=== PATIENT | female | born 1995 | race African-American/Black ===

== ENCOUNTER 2019-07-05 16:18 | Emergency (ER) | payer OTHER, SELFPAY ==
--- NOTE | ~2019-07-05 | US_ITS ---
EXAMINATION: US OB <=14 wk fetus w TV DATE: 07/05/2019 17:40 INDICATION: Cramping during first trimester . TECHNIQUE: Real-time pelvic ultrasound utilizing both a transvaginal and transabdominal probe was pe rformed. The interpreting radiologist was not present for the study. COMPARISON: None. FINDINGS: The uterus measures 8.7 x 4.4 x 5.6 cm. 11 x 4 x 7 mm endometrial fluid collection without evident y olk sac or pole. The right ovary measures 2.3 x 1.9 x 1.0 cm. With a few subcentimeter anechoic follicles. The left ov jero measures 4.1 x 3.2 x 2.7 cm. Vascular flow identified at both ovaries on color Doppler. 2.3 x 1.7 x 1.8 cm mildly complex anechoic cystic lesion in the left ovary with incomplete internal septation and small amount of peripheral hypoechoic material without vascular flow on color Doppler which could represent either hemorrhagic or corpus luteum cyst. There is small amount of anechoic free fluid in the cul-de-sac and along the left ovary. IMPRESSION: 1. Small endometrial fluid collection without evident yolk sac or pole. Differential would incl ude early, failed or ectopic . If representing a gestational sac the estimated gestational a ge based on mean sac diameter would be 5 weeks and 2 days. 2. Small amount of nonspecific anechoic free fluid in the pelvis. 3. Mildly complex cystic structure in the left ovary most likely either corpus luteum cyst or hemorrh agic cyst although differential would include neoplasm. Recommend follow-up ultrasound in 6-12 weeks if prior ultrasound is not otherwise obtained for obstetrical reasons. Reviewed, dictated and finalized at location A. IMPRESSION: 1. Small endometrial fluid collection without evident yolk sac or pole. D ifferential would include early, failed or ectopic . If representing a gestational sac the estimated gestational age based on mean sac diameter would be 5 weeks and 2 days. 2. Small amount of nonspecific anechoic free fluid in the pelvis. 3. Mildly complex cystic structure in the left ovary most likely either corpus luteum cyst or hemorrhagic cyst although differential would include neoplasm. R ecommend follow-up ultrasound in 6-12 weeks if prior ultrasound is not otherwis e obtained for obstetrical reasons.
[2019-07-05 16:21] VITALS: BP 119/72; PULSE 96; RESP 16; TEMP 37.2; O2SAT 98
--- NOTE | 2019-07-05 17:22 | ED_ITS ---
HPI - Abdominal Pain General Chief Complaint: Abdominal Pain <Redd Mg PA-C - Last Filed: 07/05/19 19:01> Stated Complaint: Abd pain <BENY Bocanegra Last Filed: 07/05/19 19:01> Time Seen by Provider: 07/05/19 16:27 <Redd Mg PA-C - Last Filed: 07/05/19 19:01> Source: patient and family <Redd Mg PA-C - Last Filed: 07/05/19 19:01> Mode of arrival: ambulatory <Redd Mg PA-C - Last Filed: 07/05/19 19:01> Limitations: no limitations <Redd Mg PA-C - Last Filed: 07/05/19 19:01> History of Present Illness HPI narrative: patient is a 23 yo female with nausea and cramping that occurred today. pt denies any pain discharge or bleeding. pt is and has not seen her ob for this. Paitent notes on e self limited episode of cramping lasted seconds and resolved. <Redd Mg PA-C - Last Filed: 07/05/19 19:01> Related Data Home Medications: Home Medications Medication Instructions Recorded Confirmed No Home Medications 07/05/19 07/05/19 <BENY Bocanegra Last Filed: 07/05/19 19:01> Allergies/Adverse Reactions: Allergies Allergy/AdvReac Type Severity Reaction Status Date / Time No Known Allergies Allergy Verified 07/05/19 16:23 <Redd Mg PA-C - Last Filed: 07/05/19 19:01> Review of Systems Review of Systems: All systems reviewed & are unremarkable except as noted in HPI and below <Redd Mg PA-C - Last Filed: 07/05/19 19:01> [facility] Social History Social History: Social History (Updated 07/05/19 @ 17:24 by Redd Mg PA-C) Smoking status: Never smoker Gender identity (if verbalized by the patient): Female <Redd Mg PA-C - Last Filed: 07/05/19 19:01> Exam Const: General: no acute distress and alert <Redd Mg PA-C - Last Filed: 07/05/19 19:01> Orientation/consciousness: patient oriented x3 <Redd Mg BENY Mena Last Filed: 07/05/19 19:01> HENMT: Head: normal to inspection <Redd Mg BENY Mena Last Filed: 07/05/19 19:01> Eyes: Conjunctivae: conjunctivae normal <Redd Mg BENY Mena Last Filed: 07/05/19 19:01> Pupils: Equal, round and reactive pupils present <Redd Jacky Mg BENY Mena Last Filed: 07/05/19 19:01> Resp: Effort & Inspection: normal respiratory effort <Redd Mg [employer] Last Filed: 07/05/19 19:01> Auscultation: clear to auscultation bilaterally <Redd Jacky Saurav BENY [employer] Last Filed: 07/05/19 19:01> Cardio: Rate: regular rate <Redd Mg BENY [employer] Last Filed: 07/05/19 19:01> Rhythm: regular rhythm <Redd Mg TON [employer] Last Filed: 07/05/19 19:01> GI: GI Palp: Yes Soft to palpation <Redd Mg TON [employer] Last Filed: 07/05/19 19:01> Other: nontender <Redd Mg TON [employer] Last Filed: 07/05/19 19:01> : General: Yes no CVA tenderness <Redd Mg TON Rajesh Last Filed: 07/05/19 19:01> Back/Spine/Pelvis: Back: no CVA tenderness <Redd Mg TON Rajesh Last Filed: 07/05/19 19:01> Skin: General skin exam: normal color <Redd Mg TON [employer] Last Filed: 07/05/19 19:01> Rashes: no rashes <STEPHANIE BocanegraRajesh 0xdata Last Filed: 07/05/19 19:01> Neuro: General: patient oriented x3, moves all extremities, no focal motor deficits and CN's II-XI intact bilaterally <Redd Rico SauravSTEPHANIETabatha 0xdata Last Filed: 07/05/19 19:01> Extrem: General: normal to
--- NOTE | 2019-07-05 17:22 | ED.ABDPAIN ---
HPI - Abdominal Pain General Chief Complaint: Abdominal Pain <Redd Mg PA-C - Last Filed: 07/05/19 19:01> Stated Complaint: Abd pain <BENY Bocanegra Last Filed: 07/05/19 19:01> Time Seen by Provider: 07/05/19 16:27 <Redd Mg PA-C - Last Filed: 07/05/19 19:01> Source: patient and family <Redd Mg PA-C - Last Filed: 07/05/19 19:01> Mode of arrival: ambulatory <Redd Mg PA-C - Last Filed: 07/05/19 19:01> Limitations: no limitations <Redd gM PA-C - Last Filed: 07/05/19 19:01> History of Present Illness HPI narrative: patient is a 23 yo female with nausea and cramping that occurred today. pt denies any pain discharge or bleeding. pt is and has not seen her ob for this. Paitent notes on e self limited episode of cramping lasted seconds and resolved. <Redd Mg PA-C - Last Filed: 07/05/19 19:01> Related Data Home Medications: Home Medications Medication Instructions Recorded Confirmed No Home Medications 07/05/19 07/05/19 <BENY Bocanegra Last Filed: 07/05/19 19:01> Allergies/Adverse Reactions: Allergies Allergy/AdvReac Type Severity Reaction Status Date / Time No Known Allergies Allergy Verified 07/05/19 16:23 <Redd Mg PA-C - Last Filed: 07/05/19 19:01> Review of Systems Review of Systems: All systems reviewed & are unremarkable except as noted in HPI and below <Redd Mg PA-C - Last Filed: 07/05/19 19:01> [facility] Social History Social History: Social History (Updated 07/05/19 @ 17:24 by Redd Mg PA-C) Smoking status: Never smoker Gender identity (if verbalized by the patient): Female <Redd Mg PA-C - Last Filed: 07/05/19 19:01> Exam Const: General: no acute distress and alert <Redd Mg PA-C - Last Filed: 07/05/19 19:01> Orientation/consciousness: patient oriented x3 <STEPHANIE BocanegraTabatha Mena Last Filed: 07/05/19 19:01> HENMT: Head: normal to inspection <STEPHANIE BocanegraTabatha Mena Last Filed: 07/05/19 19:01> Eyes: Conjunctivae: conjunctivae normal <STEPHANIE BocanegraRajesh Rajesh Last Filed: 07/05/19 19:01> Pupils: Equal, round and reactive pupils present <STEPHANIE BocanegraRajesh Rajesh Last Filed: 07/05/19 19:01> Resp: Effort & Inspection: normal respiratory effort <STEPHANIE BocanegraRajesh [employer] Last Filed: 07/05/19 19:01> Auscultation: clear to auscultation bilaterally <STEPHANIE BocanegraRajesh Rajesh Last Filed: 07/05/19 19:01> Cardio: Rate: regular rate <STEPHANIE BocanegraRajesh [employer] Last Filed: 07/05/19 19:01> Rhythm: regular rhythm <STEPHANIE BocanegraRajesh [employer] Last Filed: 07/05/19 19:01> GI: GI Palp: Yes Soft to palpation <STEPHANIE BocanegraRajesh [employer] Last Filed: 07/05/19 19:01> Other: nontender <STEPHANIE BocanegraRajesh [employer] Last Filed: 07/05/19 19:01> : General: Yes no CVA tenderness <STEPHANIE BocanegraRajesh Rajesh Last Filed: 07/05/19 19:01> Back/Spine/Pelvis: Back: no CVA tenderness <STEPHANIE BocanegraRajesh Rajesh Last Filed: 07/05/19 19:01> Skin: General skin exam: normal color <STEPHANIE BocanegraRajesh [employer] Last Filed: 07/05/19 19:01> Rashes: no rashes <STEPHANIE BocanegraRajesh [employer] Last Filed: 07/05/19 19:01> Neuro: General: patient oriented x3, moves all extremities, no focal motor deficits and CN's II-XI intact bilaterally <TON Bocanegra [employer] Last Filed: 07/05/19 19:01> Extrem: General: normal to inspection <TON Bocanegra [employer] Last Filed: 07/05/19 19:01> Psych: Appearance: grossly normal <Redd Mg PA-C - Last Filed: 07/05/19 19:01> Mental Status: mental status grossly normal <Redd Mg PA-C - Last Filed: 07/05/19 19:01> Affect: normal affect <Redd Mg PA-C - Last Filed: 07/05/19 19:01> Thought content: Yes Normal thought content present <Redd Mg PA-C - Last Filed: 07/05/19 19:01> Course Consultations Consultation #1: spoke with dish network installer Mireille who will follow patient in cl
[2019-07-05 17:23] LABS: Basophils Percent Auto 0.5 % (0.2-1.2); Eosinophils Absolute Auto 0.1 K/mm3 (0-0.3); Eosinophils Percent Auto 0.9 % (0-4.4); Hematocrit 39.1 % (37.0-47.0); Hemoglobin 12.8 g/dL (12.0-15.0); Immature Granulocyte Absolute 0.02 K/mm3 (0.00-0.031); Immature Granulocyte Percent A 0.3 % (0-0.5); Lymphocytes Percent Auto 24.4 % (18.3-44.2); Mean Corpuscular HGB Conc 32.7 g/dl (32-36); Mean Corpuscular Volume 94.7 fl (80-100); Mean Platelet Volume 11.2 fl (7.4-10.4); Monocytes Absolute Auto 0.8 K/mm3 (0.1-0.6); Monocytes Percent Auto 13.1 % (2.6-8.5); Neutrophils Absolute Auto 3.5 K/mm3 (1.3-6.7); Neutrophils Percent Auto 60.8 % (45.5-73.1); Platelet Count Result 237 k/mm3 (150-375); Red Blood Count 4.13 M/mm3 (4.2-5.4); Red Cell Distribution Width 12.4 % (11.5-14.5); White Blood Count 5.7 K/mm3 (4.5-10.0)
[2019-07-05 17:27] LABS: Add Urine Microscopic? YES; Appearance Urine Clear (Clear); Bilirubin Urine Negative (Negative); Blood Urine 2+ (Negative); Color Urine Colorless (Yellow); Glucose Urine UA Negative (Negative); Ketones Urine Negative (Negative); Leukocyte Esterase Ur Negative LEU/UL (Negative); Nitrate Urine Negative (Negative); Protein Urine Negative (Negative); Specific Grav Ur 1.005 (1.001-1.035); Squamous Epithelial Cell Urine Few /hpf (Few); Urobilinogen Urine Negative mg/dL (<2.0); WBC Urine 0-3 /hpf
[2019-07-05 17:58] LABS: Alanine Aminotransferase 48 U/L (4-35); Albumin Level 4.5 g/dL (3.5-5.1); Alkaline Phosphatase 81 U/L (38-126); Aspartate Amino Transferase 33 U/L (14-36); Bilirubin,Total 0.1 mg/dL (0.2-1.3); Blood Urea Nitrogen 10 mg/dL (7-17); Calcium 8.9 mg/dL (8.4-10.2); Carbon Dioxide 25 mmol/L (22-30); Chloride 103 mmol/L (98-107); Estimated CRCL calculation 138 ml/min; Estimated Glomerular Filt Rate > 60; Glucose 88 mg/dL (65-105); Lipase 91 U/L (23-300); Sodium 135 mmol/L (137-145)
[2019-07-05 18:10] LABS: Potassium 3.8 mmol/L (3.4-5.0)
== END 2019-07-05 19:11 | disposition home or self-care (01) ==
PROVIDERS: Emergency Medicine Emergency Medical Services; Emergency Provider Emergency Medicine
DX: O26.891 Other specified pregnancy related conditions, first trimester (principal); R10.9 Unspecified abdominal pain; Z3A.01 Less than 8 weeks gestation of pregnancy; R93.89 Abnormal findings on diagnostic imaging of other specified body structures
CPT/HCPCS: 36415; 76801; 76817; 80053; 81001; 81025; 83690; 84702; 85025; 99284

== ENCOUNTER 2020-01-13 14:05 | Observation (INO) | payer OTHER, MEDICAID, SELFPAY ==
[2020-01-13] VITALS (8 sets, daily range): BP systolic 95–110; BP diastolic 58–67; PULSE 88–112; TEMP 36.8; BMI 22.8
--- NOTE | 2020-01-13 14:38 | OBADM ---
This patient, Aleja Magallon, admitted to the OB room 115 at 1405 for observation for c/o abdominal cramping. Patient/family oriented to hospital policies and general routines including ID bracelet, bed and alarms, visiting hours, pain management, procedures, bathroom and other care routines, personal items, smoking policy, room service/diet, and visiting hours. Patient/Family are encouraged to report perceived risks to care and to ask questions if they do not understand what they are told or what they should do.
[2020-01-13 14:45] LABS: Add Urine Microscopic? YES; Appearance Urine Clear (Clear); Bacteria Urine Trace /hpf; Bilirubin Urine Negative (Negative); Blood Urine Negative (Negative); Color Urine Yellow (Yellow); Glucose Urine UA Negative (Negative); Ketones Urine Trace mg/dL (Negative); Leukocyte Esterase Ur Negative LEU/UL (Negative); Mucus Urine Rare /lpf; Nitrate Urine Negative (Negative); Protein Urine Negative (Negative); RBC Urine 0-2 /hpf (0-2); Specific Grav Ur 1.012 (1.001-1.035); Squamous Epithelial Cell Urine Many /hpf (Few); Urobilinogen Urine Negative mg/dL (<2.0); WBC Urine 0-3 /hpf
[2020-01-13] MEDS: ACETAMINOPHEN 500 MG TABLET PO (15:14)
[2020-01-13] MEDS: TERBUTALINE SULFATE 1 MG/ML VIAL 0.25 MG SUB-Q (16:15)
--- NOTE | 2020-01-18 07:33 | P.PNOB_ITS ---
OB - Triage/Final Diagnosis Visit Information Date of evaluation: 01/13/20 Reason for evaluation: threatened labor Evaluation Laboratory results: Laboratory Tests 01/13/20 14:31 Urine Color Yellow Urine Appearance Clear Urine pH 7.0 Ur Specific [place] 1.012 Urine Protein Negative Urine Glucose (UA) Negative Urine Ketones Trace Ur Blood (Man) Negative Urine Nitrate Negative Urine Bilirubin Negative Urine Urobilinogen Negative Leukocyte Esterase Rfl Negative Urine RBC 0-2 Urine WBC 0-3 Ur Squamous Epith Cells Many H Urine Bacteria Trace Urine Mucus Rare
== END 2020-01-13 18:49 | disposition home or self-care (01) ==
PROVIDERS: Advanced Practice Midwife; Admitting Provider Obstetrics & Gynecology; PCP Physician Assistant; Visit Provider Obstetrics & Gynecology
DX: O47.9 False labor, unspecified (principal); Z3A.00 Weeks of gestation of pregnancy not specified
CPT/HCPCS: 81001; 96372; A9270; G0378; G0379; J3105

== ENCOUNTER 2020-01-30 10:41 | Observation (INO) | payer OTHER, MEDICAID, SELFPAY ==
--- NOTE | 2020-01-30 10:41 | OBADM ---
This patient, Aleja Magallon, admitted to the OB room OB Post 116 for observation. Patient/family oriented to hospital policies and general routines including ID bracelet, bed and alarms, visiting hours, pain management, procedures, bathroom and other care routines, personal items, smoking policy, room service/diet, and visiting hours. Patient/Family are encouraged to report perceived risks to care and to ask questions if they do not understand what they are told or what they should do.
[2020-01-30 11:00] VITALS: BP 102/53; PULSE 115
[2020-01-30 11:02] VITALS: TEMP 36.2
[2020-01-30 11:06] VITALS: BMI 24.2
[2020-01-30] MEDS: ACETAMINOPHEN 500 MG TABLET 1000 MG PO (11:16)
--- NOTE | 2020-02-24 08:09 | PM.OBTRLD ---
OB - Triage/Final Diagnosis Final Diagnosis (1) False labor: Code(s): O47.9 - False labor, unspecified Status: Acute
== END 2020-01-30 11:40 | disposition home or self-care (01) ==
PROVIDERS: Admitting Provider Obstetrics & Gynecology; PCP Physician Assistant; Visit Provider Obstetrics & Gynecology
DX: O47.03 False labor before 37 completed weeks of gestation, third trimester (principal); Z3A.35 35 weeks gestation of pregnancy
CPT/HCPCS: A9270; G0378; G0379

== ENCOUNTER 2020-02-29 19:54 | Inpatient (IN) | payer OTHER, MEDICAID, SELFPAY ==
[2020-02-29 20:30] VITALS: BMI 24.7
[2020-02-29 20:33] LABS: Basophils Percent Auto 0.3 % (0.2-1.2); Eosinophils Percent Auto 0.4 % (0-4.4); Hematocrit 32.3 % (37.0-47.0); Hemoglobin 10.9 g/dL (12.0-15.0); Immature Granulocyte Absolute 0.09 K/mm3 (0.00-0.031); Immature Granulocyte Percent A 0.9 % (0-0.5); Lymphocytes Absolute Auto 1.69 K/mm3 (0.9-3.2); Lymphocytes Percent Auto 16.8 % (18.3-44.2); Mean Corpuscular HGB Conc 33.7 g/dl (32-36); Mean Corpuscular Hemoglobin 32.5 pg (26-34); Mean Corpuscular Volume 96.4 fl (80-100); Mean Platelet Volume 11.6 fl (7.4-10.4); Monocytes Absolute Auto 1.2 K/mm3 (0.1-0.6); Monocytes Percent Auto 12.4 % (2.6-8.5); Neutrophils Absolute Auto 6.9 K/mm3 (1.3-6.7); Neutrophils Percent Auto 69.2 % (45.5-73.1); Platelet Count Result 178 k/mm3 (150-375); Red Blood Count 3.35 M/mm3 (4.2-5.4); Red Cell Distribution Width 13.9 % (11.5-14.5)
[2020-02-29 20:49] VITALS: TEMP 36.8
[2020-02-29] MEDS: DINOPROSTONE 10 MG VAG INSERT VAGINAL (20:54)
--- NOTE | 2020-02-29 21:35 | LDADM ---
This patient, Aleja Magallon, was admitted to Labor/Delivery/Recovery 107 on 02/29/20 at 19:54. Plans for labor, pain management and were discussed with patient. Patient/family oriented to hospital policies and general routines including ID bracelet, bed and alarms, visiting hours, pain management, procedures, bathroom and other care routines, personal items, smoking policy, room service/diet and guest tray routines, infant security routines, and visiting hours. Patient/Family are encouraged to report perceived risks to care and to ask questions if they do not understand what they are told or what they should do. See OBIX for further documentation.
[2020-02-29 22:51] VITALS: BP 102/66; PULSE 104
[2020-02-29] MEDS: ZOLPIDEM TARTRATE (*CRX) 5 MG TABLET PO (22:55)
[2020-03-01] VITALS (79 sets, daily range): BP systolic 97–230; BP diastolic 46–174; PULSE 37–130; RESP 14; TEMP 36.5–37.2; O2SAT 77–100
--- NOTE | 2020-03-01 06:05 | WPDANESEPP ---
Anes - Eval Pre Procedure Procedure: labor epidural Date/Time: 03/01/20 06:05 Surgeon: kendrick Pre Op Diagnosis: Induction Patient Data Age: 24 Gender: F Height: 1.7 m Weight: 71.8 kg Last Vital Signs Temp 36.5 C 03/01/20 03:57 Pulse 116 H 03/01/20 03:56 BP 125/76 03/01/20 03:56 Allergies Allergy/AdvReac Type Severity Reaction Status Date / Time No Known Allergies Allergy Verified 02/09/20 15:39 Home Medications Medication Instructions Recorded Confirmed Type PNV cmb#95-ferrous fumarate-FA 1 tablet PO DAILY 01/13/20 02/29/20 History [] acetaminophen [Tylenol Extra 1,000 mg PO Q6H PRN #0 tablet 01/13/20 01/13/20 Rx Strength] valacyclovir [Valtrex] 500 mg PO DAILY 02/09/20 02/09/20 History Laboratory Tests 02/29/20 02/29/20 02/29/20 20:26 20:26 20:26 WBC 10.0 K/mm3 K/mm3 (4.5-10.0) RBC 3.35 M/mm3 L M/mm3 (4.2-5.4) Hgb 10.9 g/dL L g/dL (12.0-15.0) Hct 32.3 % L % (37.0-47.0) MCV 96.4 fl fl (80-100) MCH 32.5 pg pg (26-34) MCHC 33.7 g/dl g/dl (32-36) RDW 13.9 % % (11.5-14.5) Plt Count 178 k/mm3 k/mm3 (150-375) MPV 11.6 fl H fl (7.4-10.4) Immature Gran % (Auto) 0.9 % H % (0-0.5) Neut % (Auto) 69.2 % % (45.5-73.1) Lymph % (Auto) 16.8 % L % (18.3-44.2) [place] % (Auto) 12.4 % H % (2.6-8.5) Eos % (Auto) 0.4 % % (0-4.4) Baso % (Auto) 0.3 % % (0.2-1.2) Lymph # (Auto) 1.69 K/mm3 K/mm3 (0.9-3.2) [place] # (Auto) 1.2 K/mm3 H K/mm3 (0.1-0.6) Eos # (Auto) 0.0 K/mm3 K/mm3 (0-0.3) Baso # (Auto) 0.0 K/mm3 K/mm3 (0.0-0.1) Abs Immat Gran (auto) 0.09 K/mm3 H K/mm3 (0.00-0.031) Absolute Neuts (auto) 6.9 K/mm3 H K/mm3 (1.3-6.7) Absolute Nucleated RBC 0.0 K/mm3 K/mm3 (0.0-0.012) Nucleated RBC % 0.0 % % (0.0-0.2) RPR Pending Blood Type O Positive Antibody Screen Negative Patient hx anesthesia problems: none Family hx anesthesia problems: none [facility] Family History Family History (Updated 02/09/20 @ 15:41 by Iron Crane RN) Sibling Asthma Social History Social History (System 07/06/19 @ 10:50 by Crystal Pugh) Smoking status: Never smoker Alcohol intake: current Substance use: never Gender identity (if verbalized by the patient): Female Spiritual care concerns: No Exam Day of Procedure 03/01/20 06:05
[2020-03-01] MEDS: LACTATED RINGERS 1,000 ML 125 ML IV CONT ×2 (08:16→14:50)
[2020-03-01] MEDS: fentaNYL CITRATE INJ (*CRX) 100 MCG/2 ML VIAL 50 MCG IV PUSH ×2 (08:17→10:50)
[2020-03-01] MEDS: OXYTOCIN 30 UNITS/NS 500 ML 30 UNITS/500 ML BAG 6 UNITS IV CONT (08:20)
--- NOTE | 2020-03-01 12:47 | WPDOBADMIT ---
Obstetrics - Admit Note Admission Note: record reviewed. No pertinent additions to the history and/or any subsequent changes in the physical findings that are not consistent with the expected course of the were found. EIL at 39 weeks, AROM small amount of clear odorless fluid, sve 1//-2 Additions to the history and/or subsequent changes in the physical findings follow. None.
[2020-03-01 13:33] LABS: Rapid Plasma Reagin Non-Reactive (NonReactive)
--- NOTE | 2020-03-01 16:44 | PM.OBPRVD ---
OB - Delivery Note Procedure Delivery date: 03/01/20 Procedure: vaginal delivery Intrapartal events: None Induction method: AROM and per pitocin protocol Delivery monitor: external FHT, external uterine and internal uterine Route of delivery: Laceration Description: None Specimen: No Quantitative Blood Loss (ml): 172 Anesthesia type: Epidural [place] Baby Date of : 03/01/20 Time of : 16:33 Weeks of gestation at delivery: 39 gender: Male Weight (pounds): 7 Weight (ounces): 7 presentation: vertex position: Left Occiput Anterior Placenta delivery description: Spontaneous cord vessel description: 3 Vessels and Clamped/Cut score one minute: 8 score five minutes: 9 Narrative: Mother and baby in stable condition.
[2020-03-01] MEDS: OXYTOCIN 30 UNITS/NS 500 ML 30 UNITS/500 ML BAG 125 UNITS IV CONT (17:15)
[2020-03-01] MEDS: WITCH HAZEL 40 PADS 1 PAD TOPICAL (18:35)
[2020-03-01] MEDS: BENZOCAINE 20% AER SPR (*SP) 56 GM CAN 1 SPRAY TOPICAL (18:35)
[2020-03-02 05:00] LABS: Hematocrit 28.9 % (37.0-47.0); Hemoglobin 9.9 g/dL (12.0-15.0)
--- NOTE | 2020-03-02 07:26 | WPDANLDPN2 ---
Anes-Prog Note L&D Date/Time: 03/02/20 07:26 Comfortable throughout: labor and delivery Neuraxial method: epidural Neuro status: Neuro function grossly intact. Cardiovascular status: normal Respiratory status: normal Airway patency: baseline Mental status: baseline Post-Op hydration status: normal Vital Signs: Last Vital Signs Temp 37.2 C 03/01/20 19:05 Pulse 101 H 03/01/20 19:05 Resp 14 03/01/20 19:05 BP 115/65 03/01/20 19:05 Pulse Ox 99 03/01/20 19:05 Pain score (VAS): 0 I/O: Intake & Output 03/01/20 03/01/20 03/02/20 15:59 23:59 07:59 Intake Total 1000 500 Output Total 206 Balance 1000 294 Post-procedural complaints: none Patient feedback: Patient satisfied with anesthetic care.
[2020-03-02 07:35] VITALS: BP 105/65; PULSE 92; RESP 18; TEMP 36.6; O2SAT 99
--- NOTE | 2020-03-02 07:42 | PM.OBPNVD ---
OB - PN: Subj Subjective Date/time seen: 03/02/20 07:42 Patient comments: no complaints baby status: doing well OB - PN: Obj Data Labs CBC & Chem 7: 03/02/20 04:50 Labs: Laboratory Results - last 24 hr 02/29/20 03/02/20 20:26 04:50 Hgb 9.9 L Hct 28.9 L RPR Non-reactive OB - PN A/P Plan day: 1 Plan: routine care Time Spent With Patient Time: Total time spent is greater than 50% in coordination of care (as documented) at patient's floor/unit and/or counseling patient: Time with patient: less than 15 minutes Review of Systems Review of Systems: All systems reviewed & are unremarkable except as noted in HPI and below Exam Narrative: Exam Narrative: Fundus firm and vaginal flow controlled. No lower ext redness, warmth, or edema. Negative homans. Const: General: comfortable Chest: Breast/axilla inspection: normal inspection of the breasts Resp: Effort & Inspection: normal respiratory effort Cardio: Rate: regular rate GI: GI Palp: Yes Soft to palpation Psych: Appearance: grossly normal Affect: normal affect Attitude: cooperative Thought content: Yes Normal thought content present Judgement: Good judgement present (Psych)
[2020-03-02] MEDS: DOCUSATE SODIUM 100 MG CAPSULE PO ×2 (11:48→17:36)
[2020-03-02] MEDS: POLYSACCHARIDE IRON COMPLEX 150 MG CAPSULE PO ×2 (11:48→17:35)
[2020-03-02] MEDS: MULTIVIT/MIN/PREN/FOL AC/IRON TABLET 1 TAB PO (11:48)
[2020-03-02] MEDS: IBUPROFEN 600 MG TABLET PO ×2 (11:49→17:36)
[2020-03-02 20:55] VITALS: BP 95/77; PULSE 86; RESP 15; TEMP 36.8; O2SAT 98
--- NOTE | 2020-03-03 06:15 | PC.NURSE ---
Patient viewed the discharge video Mother & Baby Care, The First Two Weeks . Patient was given the opportunity and encouraged to ask questions. Patient verbalized understanding of information shared and has been given the mother/baby guide for home reference.
--- NOTE | 2020-03-03 07:33 | PM.OBPNVD ---
OB - PN: Subj Subjective Date/time seen: 03/03/20 07:33 Patient comments: no complaints baby status: doing well Vancleve feeding status: exclusively bottle feeding OB - PN: Obj Data Labs CBC & Chem 7: 03/02/20 04:50 OB - PN A/P Plan day: 2 Plan: routine care and discharge home Time Spent With Patient Time: Total time spent is greater than 50% in coordination of care (as documented) at patient's floor/unit and/or counseling patient: Review of Systems Review of Systems: All systems reviewed & are unremarkable except as noted in HPI and below Exam Const: General: cooperative Psych: Thought content: Yes Normal thought content present Insight: Good insight present (Psych) Judgement: Good judgement present (Psych)
--- NOTE | 2020-03-03 07:34 | P.DS_ITS ---
DS: Admitting Diagnosis Admitting Diagnosis Admitting Diagnosis: Induction OB - DS: Summary OB Procedures : None OB Procedures Intrapartum: Spontaneous Vag Delivery OB Procedures: : None Time Spent with Patient Time attestation: Total time spent providing and/or coordinating discharge services: Discharge Plan Discharge Attending physician on discharge: Leonarda Kendrick Discharging Clinician: Paulina Stephens Patient Disposition: Home, Self-Care Activity: pelvic rest Diet: regular Patient Instructions: Antibiotic Form Stand Alone Forms: General Discharge Information Follow-up/Referrals: Paulina Stephens CNM [Certified Nurse Digital Strategy Specialist] - 4 Weeks Discharge Medications: New ibuprofen 600 mg Tablet 600 mg PO Q6H PRN (Reason: Cramping) Qty: 30 RF: 0 Continued PNV cmb#95-ferrous fumarate-FA [] 28 mg iron- 800 mcg Tablet 1 tablet PO DAILY RF: 0 Discontinued valacyclovir [Valtrex] 500 mg Tablet 500 mg PO DAILY RF: 0 Date of admission: 02/29/20 19:54 Primary Care Provider: Amirah,Lauren Admitting Provider: Leonarda Kendrick Attending physician on admission: Leonarda Kendrick Condition: Stable
[2020-03-03 08:10] VITALS: BP 106/71; PULSE 67; RESP 16; TEMP 36.5; O2SAT 100
[2020-03-03] MEDS: DOCUSATE SODIUM 100 MG CAPSULE PO (08:24)
[2020-03-03] MEDS: POLYSACCHARIDE IRON COMPLEX 150 MG CAPSULE PO (08:24)
[2020-03-03] MEDS: IBUPROFEN 600 MG TABLET PO (08:25)
[2020-03-04 12:06] VITALS: BP 106/64; PULSE 89; RESP 20; TEMP 37.4; O2SAT 100
== END 2020-03-03 11:34 | disposition home or self-care (01) | DRG 807 ==
LOC: ANHLDR 19:59 → ANHOB2 03-01 19:39
PROVIDERS: Advanced Practice Midwife; Admitting Provider Obstetrics & Gynecology; PCP Physician Assistant; Visit Provider Obstetrics & Gynecology
DX: O98.52 Other viral diseases complicating childbirth (principal); Z37.0 Single live birth; B00.9 Herpesviral infection, unspecified; Z3A.39 39 weeks gestation of pregnancy
CPT/HCPCS: 36415; 85014; 85018; 85025; 86592; 86850; 86900; 86901; A9270; J2590; J2795; J3010; J7120

== ENCOUNTER 2020-10-09 18:09 | Emergency (ER) | payer BC, MEDICAID, SELFPAY ==
--- NOTE | ~2020-10-09 | XR_ITS ---
EXAMINATION: XR chest 2V EXAM DATE: 10/09/2020 18:30 INDICATION: CP x few weeks, worst pain past week, pain midchest. TECHNIQUE: Frontal and lateral projections of the chest obtained and reviewed. There is no prior omega dy for comparison. FINDINGS: The lungs are clear. There are no pleural effusions. The cardiomediastinal silhouette is within normal limits. There is no pneumothorax suspected. The bones and soft tissues are unremarkab le. IMPRESSION: No acute cardiopulmonary findings. Reviewed, dictated and finalized at location A.
--- NOTE | 2020-10-09 18:11 | ECG_ITS ---
Measurements Intervals [place] Rate: 86 P: 43 VT: 148 QRS: 86 QRSD: 95 T: 60 QT: 332 QTc: 399 Interpretive Statements SINUS RHYTHM INCOMPLETE RIGHT BUNDLE BRANCH BLOCK BORDERLINE ECG Electronically Signed On 10-09-2020 20:17:32 CDT by Sid Arroyo D.O.
[2020-10-09 18:34] VITALS: BP 102/65; PULSE 82; RESP 18; TEMP 36.6; O2SAT 99
[2020-10-09 18:44] LABS: Basophils Percent Auto 0.6 % (0.2-1.2); Eosinophils Absolute Auto 0.1 K/mm3 (0-0.3); Eosinophils Percent Auto 1.5 % (0-4.4); Hematocrit 42.4 % (37.0-47.0); Hemoglobin 13.6 g/dL (12.0-15.0); Immature Granulocyte Absolute 0.01 K/mm3 (0.00-0.031); Immature Granulocyte Percent A 0.2 % (0-0.5); Lymphocytes Absolute Auto 2.35 K/mm3 (0.9-3.2); Lymphocytes Percent Auto 43.8 % (18.3-44.2); Mean Corpuscular HGB Conc 32.1 g/dl (32-36); Mean Corpuscular Hemoglobin 30.4 pg (26-34); Mean Corpuscular Volume 94.6 fl (80-100); Monocytes Absolute Auto 0.5 K/mm3 (0.1-0.6); Monocytes Percent Auto 9.5 % (2.6-8.5); Neutrophils Absolute Auto 2.4 K/mm3 (1.3-6.7); Neutrophils Percent Auto 44.4 % (45.5-73.1); Platelet Count Result 234 k/mm3 (150-375); Red Blood Count 4.48 M/mm3 (4.2-5.4); Red Cell Distribution Width 12.9 % (11.5-14.5); White Blood Count 5.4 K/mm3 (4.5-10.0)
[2020-10-09 19:02] LABS: Anion Gap 11 mmol/L (8-16); Blood Urea Nitrogen 15 mg/dL (7-17); Calcium 9.7 mg/dL (8.4-10.2); Carbon Dioxide 24 mmol/L (22-30); Chloride 107 mmol/L (98-107); Estimated CRCL calculation 104 ml/min; Estimated Glomerular Filt Rate > 60; Glucose 85 mg/dL (65-110); Potassium 4.1 mmol/L (3.4-5.0); Sodium 142 mmol/L (137-145)
[2020-10-09 19:10] LABS: Prothrombin Time 12.8 Seconds (11.1-14.7)
[2020-10-09 19:11] LABS: Partial Thromboplastin Time 27.5 SECONDS (22.3-36.8)
[2020-10-09 19:13] LABS: Troponin I < 0.012 ng/mL (0.000-0.034)
[2020-10-09 19:54] VITALS: BP 96/63; PULSE 88; RESP 18; TEMP 36.6; O2SAT 98
--- NOTE | 2020-10-09 20:14 | ED.GENADULT ---
HPI - General Adult General Chief complaint: Chest Pain Stated complaint: chest pain Time Seen by Provider: 10/09/20 19:49 History of Present Illness HPI narrative: Patient with 5-year-old female presents the emergency department with chief complaint of chest discomfort. Patient states that she has been having discomfort in her chest for some time and reports that it is both a tightness feeling and also a sharp feeling patient reports that it comes and goes and has been doing this for several months. Patient states that several days ago she had an episode and she decided to call her doctor who recommended that she come to the emergency department. Patient states that today she finally had time to go to the emergency department and be evaluated. Patient denies diaphoresis denies radiation reports that sometimes it is related whenever she eats. Related Data Allergies Allergy/AdvReac Type Severity Reaction Status Date / Time No Known Allergies Allergy Verified 10/09/20 18:42 Review of Systems Review of Systems: Narrative: A 10 system review of systems was completed on the patient and is negative except for what is stated in the HPI. Nursing and ancillary documentation was reviewed. PMFSH Family History Family History Sibling Asthma Social History Social History Smoking status: Never smoker Alcohol intake: current Substance use: never Gender identity (if verbalized by the patient): Female Spiritual care concerns: No Exam Narrative: Exam Narrative: GENERAL: Well-appearing, well-nourished, and in no acute distress. HEAD: Normocephalic, atraumatic. EYES: PERRLA and EOMI. ENT: Nares clear, no rhinorrhea or epistaxis. Mucous membranes moist. NECK: Supple. CHEST: Clear to auscultation. No respiratory distress. Chest wall is tender to palpation in the sternal border HEART: Regular rate and rhythm. No murmur heard. Normal peripheral pulses. ABDOMEN: Soft, nontender, nondistended, normal active bowel sounds. EXTREMITIES: Normal range of motion. No edema. SKIN: Warm, dry, no rash. NEURO: No focal deficits. Alert and oriented x3. PSYCH: Normal mood and affect. Course Course Emergency Course: EKG is sinus rhythm rate of [address] elevation or ST depression Vital Signs Vital signs: Vital Signs Temperature 36.6 C 10/09/20 18:34 Pulse Rate 82 10/09/20 18:34 Respiratory Rate 18 10/09/20 18:34 Blood Pressure 102/65 10/09/20 18:34 Pulse Oximetry 99 10/09/20 18:34 Temperature 36.6 C 10/09/20 19:54 Pulse Rate 88 10/09/20 19:54 Respiratory Rate 18 10/09/20 19:54 Blood Pressure 96/63 L 10/09/20 19:54 Pulse Oximetry 98 10/09/20 19:54 Medical Decision Making Vital Signs Vital Signs: Vital Signs Temperature 36.6 C 10/09/20 18:34 Pulse Rate 82 10/09/20 18:34 Respiratory Rate 18 10/09/20 18:34 Blood Pressure 102/65 10/09/20 18:34 Pulse Oximetry 99 10/09/20 18:34 Temperature 36.6 C 10/09/20 19:54 Pulse Rate 88 10/09/20 19:54 Respiratory Rate 18 10/09/20 19:54 Blood Pressure 96/63 L 10/09/20 19:54 Pulse Oximetry 98 10/09/20 19:54 Lab Data Result diagrams: 10/09/20 18:37 10/09/20 18:37 Labs: Lab Results 10/09/20 10/09/20 10/09/20 Range/Units 18:37 18:37 18:37 WBC 5.4 (4.5-10.0) K/mm3 RBC 4.48 (4.2-5.4) M/mm3 Hgb 13.6 D (12.0-15.0) g/dL Hct 42.4 (37.0-47.0) % MCV 94.6 (80-100) fl MCH 30.4 (26-34) pg MCHC 32.1 (32-36) g/dl RDW 12.9 (11.5-14.5) % Plt Count 234 (150-375) k/mm3 MPV 11.0 H (7.4-10.4) fl Immature Gran % (Auto) 0.2 (0-0.5) % Neut % (Auto) 44.4 L (45.5-73.1) % Lymph % (Auto) 43.8 (18.3-44.2) % [place] % (Auto) 9.5 H (2.6-8.5) % Eos % (Auto) 1.5 (0-4.4) % Baso % (Auto) 0.6 (0.2-1.2) % Lymph # (A
[2020-10-09] MEDS: ASPIRIN 81 MG CHEWABLE TABLET 324 MG PO (20:24)
== END 2020-10-09 20:35 | disposition home or self-care (01) ==
PROVIDERS: Emergency Medicine; Emergency Provider Emergency Medicine; PCP Physician Assistant
DX: R07.89 Other chest pain (principal)
CPT/HCPCS: 36415; 71046; 80048; 84484; 85025; 85610; 85730; 93005; 99284; A9270

== ENCOUNTER 2021-08-15 15:30 | Outpatient (CLI) | payer OTHER, SELFPAY ==
--- NOTE | 2021-08-15 15:44 | ECG_ITS ---
Measurements Intervals [place] Rate: 82 P: 61 ID: [id number] QRS: 86 QRSD: 86 T: 57 QT: 338 QTc: 396 Interpretive Statements SINUS RHYTHM NORMAL ECG Electronically Signed On 08-15-2021 16:04:14 CDT by Sid Arroyo D.O.
--- NOTE | 2021-08-17 12:03 | WPDHOLTEREM ---
Holter/Event Monitor Holter/Event Monitor Date of procedure: 08/15/21 Holter/Event Procedure: 24 Hr Holter Monitor Indications: Palpitations Conclusion: 1. 24 hour holter monitor on 08/15/21. 2. Underlying rhythm is sinus rhythm. HR range 60-135 bpm; average HR 92 bpm. 3. There are 3 premature supraventricular complexes. No supraventricular tachycardia. 4. No premature ventricular complexes. No ventricular tachycardia. 5. No sinoatrial or atrioventricular blocks. No significant pauses greater than 2 seconds. 6. No symptoms available for correlation.
== END 2021-08-15 15:31 | disposition home or self-care (01) ==
LOC: ANHCARD 15:32
PROVIDERS: PCP Family Medicine; Visit Provider Nurse Practitioner Family
DX: R07.89 Other chest pain (principal); N92.0 Excessive and frequent menstruation with regular cycle; R06.02 Shortness of breath
CPT/HCPCS: 93005; 93225; 93226

== ENCOUNTER 2022-03-04 15:27 | Outpatient (CLI) | payer OTHER, MEDICAID, SELFPAY ==
--- NOTE | ~2022-03-04 | DEXA_ITS ---
Bone Density Report Name: JAMES LAUREANO Age: 26 Sex: Female Ethnicity: Black Date of : 1995 Indication: postmenopausal; Referring Provider: EBONY, CADY Olivares Study: Bone densitometry was performed. Exam Date: March 04, 2022 Accession number: [id number] Bone Density: Region BMD T-score Z-score Classification AP Spine(L1-L4) 0.976 -1.5 Femoral Neck (Left) 0.835 -0.8 Total Hip (Left) 0.946 -0.5 Femoral Neck (Right) 0.712 -1.7 Total Hip (Right) 0.899 -0.8 Total Hip Mean 0.923 -0.7 World Health Organization criteria for BMD impression classify patients as: Normal (T-score at or above -1.0), Osteopenia (T-score between -1.0 and -2.5), or Osteoporosis (T-score at or below -2.5). 10-year Fracture Risk(1): Major Osteoporotic Fracture 0.9% Hip Fracture 0.1% Reported Risk Factors: [place] ([place]), Neck BMD=0.712, BMI=24.7 Input outside FRAX(R) limits. Adjusted to:Age=40 (1) FRAX(R) Version 3.08. Fracture probability calculated for an untreated patient. Fracture probability may be lower if the patient has received treatment. Clinical Information Provided by Patient: Patient maximum height was 67 Does not regularly consume dairy products Onset of menses at age 16 Number of children 1 Missed period for more than 6 months in a row Impression: The patient has an estimated ten-year risk of hip fracture of 0.1% and an estimated ten-year risk of major fracture of 0.9%, based on the WHO FRAX algorithm. Discussion: BONE DENSITY IS ABOVE THE MINIMUM DESIRABLE LEVEL AT ALL SKELETAL SITES TESTED. This patient?s bone mineral density is above the minimum desirable level (T-score -1.0 or better) at all sites measured. The patient should follow a healthful lifestyle (good nutrition with adequate calcium and vitamin D, and appropriate weight-bearing exercise). Follow-Up: Consider repeating this study in 5 years or sooner if there is some new clinical indication. Reported by: LUZ on 03/04/2022 3:56:00 PM. Reviewed, dictated and finalized at location AAndrew GILL
== END 2022-03-04 15:28 | disposition home or self-care (01) ==
PROVIDERS: PCP Family Medicine; Visit Provider Nurse Practitioner
DX: Z87.39 Personal history of other diseases of the musculoskeletal system and connective tissue (principal)
CPT/HCPCS: 77080

== ENCOUNTER 2022-05-17 19:13 | Emergency (ER) | payer OTHER, MEDICAID, SELFPAY ==
--- NOTE | ~2022-05-17 | CT_ITS ---
EXAMINATION: CT abdomen pelvis w con DATE: 05/17/2022 21:25 INDICATION: Mid abdominal pain. Mid back pain. TECHNIQUE: Computed tomography (CT) of the abdomen and pelvis was performed with 100 mL Omnipaque 350 intravenous contrast. Automated exposure control and iterative reconstruction technique were employe d. The dose-length product was 309.39 mGy-cm. COMPARISON: None. FINDINGS: The visualized portions of the lung bases are clear without pneumonia or pleural effusion. The heart size is normal. No pericardial effusion. The liver, gallbladder, spleen, pancreas, adrenal glands, and kidneys are normal. There is a 3.4 cm mass in right ovary, likely a hemorrhagic cyst. The re are no dilated loops of bowel. The appendix is normal. The bones are unremarkable. IMPRESSION: 1. 3.4 cm mass in right ovary, likely a hemorrhagic cyst. Consider pelvis ultrasound. Reviewed, dictated and finalized at location A. CHISE MANAGER IMPRESSION: 1. 3.4 cm mass in right ovary, likely a hemorrhagic cyst. Consider pelvis ultra sound.
[2022-05-17 19:15] VITALS: BP 104/66; PULSE 80; RESP 20; TEMP 36.9; O2SAT 99
[2022-05-17 19:35] VITALS: BP 110/64; PULSE 81; RESP 16; TEMP 36.9; O2SAT 100
[2022-05-17 20:19] LABS: Basophils Percent Auto 0.2 % (0.2-1.2); Eosinophils Absolute Auto 0.1 K/mm3 (0-0.3); Eosinophils Percent Auto 0.8 % (0-4.4); Hematocrit 40.3 % (37.0-47.0); Hemoglobin 13.3 g/dL (12.0-15.0); Immature Granulocyte Absolute 0.02 K/mm3 (0.00-0.031); Immature Granulocyte Percent A 0.3 % (0-0.5); Lymphocytes Absolute Auto 1.91 K/mm3 (0.9-3.2); Lymphocytes Percent Auto 31.3 % (18.3-44.2); Mean Corpuscular Hemoglobin 32.4 pg (26-34); Mean Corpuscular Volume 98.1 fl (80-100); Mean Platelet Volume 11.3 fl (7.4-10.4); Monocytes Absolute Auto 0.6 K/mm3 (0.1-0.6); Monocytes Percent Auto 9.2 % (2.6-8.5); Neutrophils Absolute Auto 3.6 K/mm3 (1.3-6.7); Neutrophils Percent Auto 58.2 % (45.5-73.1); Platelet Count Result 230 k/mm3 (150-375); Red Blood Count 4.11 M/mm3 (4.2-5.4); Red Cell Distribution Width 13.4 % (11.5-14.5); White Blood Count 6.1 K/mm3 (4.5-10.0)
[2022-05-17 20:33] LABS: Lactic Acid Reflex 0.8 mmol/L (0.7-2.0)
[2022-05-17 20:34] LABS: Alanine Aminotransferase 13 U/L (6-35); Albumin Level 4.6 g/dL (3.5-5.1); Alkaline Phosphatase 77 U/L (38-126); Anion Gap 3 mmol/L (8-16); Aspartate Amino Transferase 24 U/L (14-36); Bilirubin,Total 0.4 mg/dL (0.2-1.3); Blood Urea Nitrogen 10 mg/dL (7-17); Calcium 9.1 mg/dL (8.4-10.2); Carbon Dioxide 29 mmol/L (22-30); Chloride 100 mmol/L (98-107); Estimated CRCL calculation 141 ml/min; Estimated Glomerular Filt Rate > 60; Glucose 87 mg/dL (65-110); Potassium 3.8 mmol/L (3.4-5.0); Sodium 132 mmol/L (137-145)
--- NOTE | 2022-05-17 21:26 | ED.ABDPAIN ---
HPI - Abdominal Pain General Chief Complaint: Abdominal Pain Stated Complaint: abd pain Time Seen by Provider: 05/17/22 19:36 Source: patient Mode of arrival: ambulatory Limitations: no limitations History of Present Illness HPI narrative: 26-year-old otherwise healthy here with the complaints of abdominal pain for past 5 days more so in the right upper quadrant area she denies any fever, chills. No history of nausea, vomiting or diarrhea. No previous history of gallbladder disease. Patient states that she went to urgent care earlier and was later referred here to the ER for evaluation MD elicited complaint: abdominal pain Onset (ago): day(s) (5) Location: epigastric and RUQ Severity: moderate Related Data Allergies Allergy/AdvReac Type Severity Reaction Status Date / Time No Known Allergies Allergy Verified 05/17/22 19:40 Review of Systems Review of Systems: All systems reviewed & are unremarkable except as noted in HPI and below Constitutional: Constitutional: Reports no additional constitutional complaints Eyes: Eyes: Reports no additional eye complaints ENT: Reports system reviewed and no additional complaints, except as documented Cardiovascular: Cardiovascular: Reports no additional cardiovascular complaints Respiratory: Respiratory: Reports no additional respiratory complaints Gastrointestinal: Gastrointestinal: Reports as per HPI Genitourinary: Genitourinary: Reports no additional female genitourinary complaints Musculoskeletal: Musculoskeletal: Reports no additional musculoskeletal complaints PMFSH Past Medical History Medical History BMI 22.0-22.9, adult Family History Family History Sibling Asthma Father No problems noted. Mother No problems noted. Social History Social History Smoking status: Never smoker Second hand tobacco smoke exposure: No Alcohol intake: current Substance use: never Substance use type: does not use Living arrangements: with family Occupation/Education: occupation Additional occupation/education comments: [employer]. Gender identity (if verbalized by the patient): Female Spiritual care concerns: No Exam Narrative: GENERAL: Well-appearing, well-nourished, and in no acute distress. HEAD: Normocephalic, atraumatic. EYES: PERRLA and EOMI. NECK: Supple. CHEST: Clear to auscultation. No respiratory distress. HEART: Regular rate and rhythm. No murmur heard. Normal peripheral pulses. ABDOMEN: Soft, tender in the right upper and epigastric area, nondistended, normal active bowel sounds. EXTREMITIES: Normal range of motion. No edema. SKIN: Warm, dry, no rash. NEURO: No focal deficits. Alert and oriented x3. PSYCH: Normal mood and affect. Course Vital Signs Vital signs: Vital Signs Temperature 36.9 C 05/17/22 19:15 Pulse Rate 80 05/17/22 19:15 Respiratory Rate 20 05/17/22 19:15 Blood Pressure 104/66 05/17/22 19:15 Pulse Oximetry 99 05/17/22 19:15 Oxygen Delivery Room Air 05/17/22 19:15 Temperature 36.9 C 05/17/22 19:35 Pulse Rate 81 05/17/22 19:35 Respiratory Rate 16 05/17/22 19:35 Blood Pressure 110/64 05/17/22 19:35 Pulse Oximetry 100 05/17/22 19:35 Oxygen Delivery Room Air 05/17/22 19:35 MDM - Abdominal Pain Differential Diagnosis Differential diagnosis: Likely abdominal pain and other (Gallbladder disease biliary colic, gastritis) Lab Data 05/17/22 20:13 05/17/22 20:13 Labs: Lab Results 05/17/22 05/17/22 05/17/22 Range/Units 20:13 20:13 20:13 WBC 6.1 (4.5-10.0) K/mm3 RBC 4.11 L (4.2-5.4) M/mm3 Hgb 13.3 (12.0-15.0) g/dL Hct 40.3 (37.0-47.0) % MCV 98.1 (80-100) fl MCH 32.4 (26-34) pg MCHC 33.0 (32-36) g/dl RDW 13.4 (11
[2022-05-17 21:33] LABS: Appearance Urine Clear (Clear); Bacteria Urine None Seen /hpf; Bilirubin Urine Negative (Negative); Blood Urine 1+ (Negative); Color Urine Yellow (Yellow); Glucose Urine UA Negative (Negative); Ketones Urine Trace mg/dL (Negative); Leukocyte Esterase Ur Trace LEU/UL (Negative); Nitrate Urine Negative (Negative); Non Pathogenic Casts 0-2; Protein Urine Negative (Negative); RBC Urine 0-2 /hpf (0-2); Specific Grav Ur 1.008 (1.001-1.035); Squamous Epithelial Cell Urine Occasional /hpf (Few); Urobilinogen Urine 0.2 mg/dL (<2.0); WBC Urine 0-5 /hpf
[2022-05-17 21:34] LABS: Add Urine Microscopic? YES
[2022-05-17 21:40] VITALS: BP 123/75; PULSE 77; RESP 18; TEMP 36.6; O2SAT 100
== END 2022-05-17 21:52 | disposition home or self-care (01) ==
PROVIDERS: Emergency Provider Family Medicine; PCP Physician Assistant
DX: R10.13 Epigastric pain (principal); N83.201 Unspecified ovarian cyst, right side
CPT/HCPCS: 36415; 74177; 80053; 81001; 81025; 83605; 85025; 99284; Q9967

== ENCOUNTER 2022-12-23 09:46 | Emergency (ER) | payer OTHER, MEDICAID, SELFPAY ==
--- NOTE | ~2022-12-23 | XR_ITS ---
XR chest 2V DATE: 12/23/2022 10:30 INDICATION: Chest and back pain, shortness of breath today TECHNIQUE: 2 views COMPARISON: 10/09/2020 PA and lateral chest FINDINGS: Normal heart size. No hilar or mediastinal enlargement. No pulmonary infiltrate or consolid ation, pleural effusion or pulmonary vascular congestion or pneumothorax. Mild thoracic and lumbar scoliosis. IMPRESSION: No active cardiopulmonary disease Reviewed, dictated and finalized at location B.
--- NOTE | 2022-12-23 10:16 | ECG_ITS ---
Measurements Intervals [place] Rate: 73 P: 53 SD: 167 QRS: 64 QRSD: 85 T: 48 QT: 340 QTc: 377 Interpretive Statements SINUS RHYTHM POSSIBLE RIGHT VENTRICULAR CONDUCTION DELAY [RSR (QR) IN V1/V2] COMPARED TO ECG 08/15/2021 15:56:08 NO SIGNIFICANT CHANGES Electronically Signed On 12-24-2022 12:05:18 CDT by Macy Jones M.D.
[2022-12-23 10:28] VITALS: BP 102/71; PULSE 78; RESP 16; TEMP 36.8; O2SAT 100
--- NOTE | 2022-12-23 11:04 | ED.GENADULT ---
HPI - General Adult General Chief complaint: Chest Pain Stated complaint: Chest pain;shortness of breath Time Seen by Provider: 12/23/22 11:04 Source: patient, RN notes reviewed and old records reviewed Mode of arrival: ambulatory Limitations: no limitations History of Present Illness HPI narrative: nd 27 year old female who presents to [facility] care with complaints of chest pain to left anterior chest and posterior back also corresponding since 0200 which woke her up. Patient reports that she felt short of breath at that time also. She states that her pain resolved and then came back at [address] with feeling like it was hard to breath. Patient reports that she again had some pain when she first arrived to clinic but pain has resolved again. Patient alert and oriented X3 respirations even and nonlabored with SAO2 100% with no tachypnea, Patient reports that he did have a tooth pulled yesterday and has some dental discomfort. Patient has history of anxiety but appears calm alert and oriented X3. Patient reports that she has worn halter monitor for 2 days in the past. MD complaint: intermitent chest pain and left Onset (ago): hour(s) (at 0200) Location: chest (left chest and left upper back) Treatments prior to arrival: none Related Data Allergies Allergy/AdvReac Type Severity Reaction Status Date / Time No Known Allergies Allergy Verified 05/17/22 19:40 Review of Systems Review of Systems: CONSTITUTIONAL: Denies fever, chills, or sweats. EYES: Denies visual changes, redness, or discharge. ENT: Denies rhinorrhea, congestion, sore throat, or otalgia. CARDIOVASCULAR: intermittent chest pain,no palpitations, or edema. RESPIRATORY: Denies cough or states dyspnea when chest pain GASTROINTESTINAL: Denies abdominal pain, nausea, vomiting, or diarrhea. GENITOURINARY: Denies dysuria or hematuria. SKIN: Denies rash or itching. MUSCULOSKELETAL: reports upper left back pain when she has chest pain none at present, or myalgia. NEUROLOGIC: Denies headache, numbness, or weakness. PSYCHIATRIC: positive for history of anxiety or depression. All systems reviewed & are unremarkable except as noted in HPI and below PMFSH Past Medical History Medical History (Updated 12/25/22 @ 13:01 by Christy Felder NP) Anxiety BMI 22.0-22.9, adult Osteopenia Family History Family History Sibling Asthma Father No problems noted. Mother No problems noted. Social History Social History Smoking status: Never smoker Second hand tobacco smoke exposure: No Alcohol intake: current Substance use: never Substance use type: does not use Living arrangements: with family Occupation/Education: occupation Additional occupation/education comments: [employer]. Gender identity (if verbalized by the patient): Female Spiritual care concerns: No Comments At time of signature, agree with nursing past medical, surgical, social and family history. There is no relevant family history pertinent to the presenting complaint Exam Narrative: GENERAL: Well-appearing, well-nourished, and in no acute distress. HEAD: Normocephalic, atraumatic.' EYES: PERRLA and EOMI. ENT: Nares clear, no rhinorrhea or epistaxis. Mucous membranes moist.TM's normal throat pink with no redness, missing lower right molar from extraction, no drainage or swelling of gums NECK: Supple.no lymphadenopathy CHEST: Clear to auscultation. No respiratory distress.SAO2 100% on room air no tachypnea, patient reports dyspnea when episode of chest pain..denies any chest pain at present time. HEART: Regular rate and rhythm. No murmur heard. Normal peripheral pulses. ABDOMEN: Soft, nontender, nondistended, normal active bowel sounds. EXTREMITIES: Normal range of motion. No edema. SKIN: Warm, dry, no rash. NEURO: No focal deficits. A
== END 2022-12-23 11:20 | disposition short-term general hospital (02) ==
LOC: EXPGOSH 09:53
PROVIDERS: Emergency Provider Registered Nurse
DX: R07.89 Other chest pain (principal)
CPT/HCPCS: 71046; 93005; 99213; G0463

== ENCOUNTER 2023-02-10 08:25 | Emergency (ER) | payer OTHER, MEDICAID, SELFPAY ==
--- NOTE | ~2023-02-10 | XR_ITS ---
EXAMINATION: XR ankle LT min 3V DATE: 02/10/2023 09:03 INDICATION: Left ankle pain. Fall. TECHNIQUE: 4 views of left ankle were obtained. COMPARISON: None. FINDINGS: Bone alignment is normal. No fracture. Joint spaces are normal. There is ankle soft tissue swelling. IMPRESSION: 1. No fracture. Reviewed, dictated and finalized at location E. ND ETL DEVELOPER IMPRESSION: 1. No fracture.
--- NOTE | ~2023-02-10 | XR_ITS ---
EXAMINATION: XR hand LT min 3V DATE: 02/10/2023 09:03 INDICATION: Left thumb pain. Fall. TECHNIQUE: 3 views of left hand were obtained. COMPARISON: None. FINDINGS: Bone alignment is normal. There is an avulsion fracture of radial aspect of base of first p roximal phalanx with 2 mm distraction. Joint spaces are normal. IMPRESSION: 1. Avulsion fracture of radial aspect of base of first proximal phalanx. Reviewed, dictated and finalized at location E. R HAMMER OPERATOR
[2023-02-10 08:25] VITALS: BP 112/72; PULSE 100; RESP 16; TEMP 36.7; O2SAT 99
[2023-02-10] MEDS: HYDROcodone/acetaminophen (*CRX) 5-325 MG TABLET 1 TAB PO (09:33)
--- NOTE | 2023-02-10 09:42 | ED.GENADULT ---
HPI - General Adult General Chief complaint: Fall Stated complaint: fall, left foot pain Time Seen by Provider: 02/10/23 08:29 History of Present Illness HPI narrative: Patient is a 27-year-old female who presents ER with pain to left thumb and left ankle. She is walking in high heels last night he fell a couple times. She did not strike her head or lose consciousness. She has pain at the base of her thumb with movement palpation. She also has pain and swelling over the lateral ankle. She is having increased difficulty bearing weight. Related Data Allergies Allergy/AdvReac Type Severity Reaction Status Date / Time No Known Allergies Allergy Verified 02/10/23 08:42 Review of Systems Musculoskeletal: Musculoskeletal: Reports arthralgias, Reports joint swelling and Denies muscle cramps Integumentary/Breasts: Skin/Breast: Denies erythema and Denies rash Neurologic: Denies syncope, Denies focal weakness and Denies numbness PMFSH Past Medical History Medical History (Updated 02/10/23 @ 09:48 by Joaquin Aparicio MD) Anxiety BMI 22.0-22.9, adult Osteopenia Family History Family History Sibling Asthma Father No problems noted. Mother No problems noted. Social History Social History Smoking status: Never smoker Second hand tobacco smoke exposure: No Alcohol intake: current Substance use: never Substance use type: does not use Living arrangements: with family Occupation/Education: occupation Additional occupation/education comments: [employer]. Gender identity (if verbalized by the patient): Female Spiritual care concerns: No Exam Narrative: GENERAL: Well-appearing, well-nourished, and in no acute distress. HEAD: Normocephalic, atraumatic. HEART: Regular rate and rhythm. Normal peripheral pulses. EXTREMITIES: Left ankle with tenderness and swelling over the ATFL. No base 5th metatarsal tenderness. No medial malleolar tenderness. Dorsiflexion and plantar flexion intact. Left hand with tenderness at the base of the thumb at the 1st MCP. Neurovascular intact. SKIN: Warm, dry, no rash. NEURO: Alert and oriented x3. PSYCH: Normal mood and affect. Course Course Emergency Course: Patient educated on diagnosis and treatment plan. She will purchase an [id number] thumb spica splint. Crutches provided here. Vital Signs Vital signs: Vital Signs Temperature 98.1 F 02/10/23 08:25 Pulse Rate 100 02/10/23 08:25 Respiratory Rate 16 02/10/23 08:25 Blood Pressure 112/72 02/10/23 08:25 Pulse Oximetry 99 02/10/23 08:25 Oxygen Delivery Room Air 02/10/23 08:25 Temperature 98.1 F 02/10/23 08:25 Pulse Rate 100 02/10/23 08:25 Respiratory Rate 16 02/10/23 08:25 Blood Pressure 112/72 02/10/23 08:25 Pulse Oximetry 99 02/10/23 08:25 Oxygen Delivery Room Air 02/10/23 08:25 Medical Decision Making Vital Signs Vital Signs: Vital Signs Temperature 98.1 F 02/10/23 08:25 Pulse Rate 100 02/10/23 08:25 Respiratory Rate 16 02/10/23 08:25 Blood Pressure 112/72 02/10/23 08:25 Pulse Oximetry 99 02/10/23 08:25 Oxygen Delivery Room Air 02/10/23 08:25 Temperature 98.1 F 02/10/23 08:25 Pulse Rate 100 02/10/23 08:25 Respiratory Rate 16 02/10/23 08:25 Blood Pressure 112/72 02/10/23 08:25 Pulse Oximetry 99 02/10/23 08:25 Oxygen Delivery Room Air 02/10/23 08:25 Imaging Data Radiologist's impression: ITS Impressions Hand X-Ray 02/10/23 09:06 IMPRESSION: 1. Avulsion fracture of radial aspect of base of first proximal phalanx. Ankle X-Ray 02/10/23 09:07 IMPRESSION: 1. No fracture. Discharge Plan Discharge Clinical Impression: Avulsion fracture of left thumb, Ankle sprain Patient Disposition: Home, Self-Care Condition: Sta
== END 2023-02-10 10:02 | disposition home or self-care (01) ==
PROVIDERS: Emergency Provider Emergency Medicine
DX: S62.512A Displaced fracture of proximal phalanx of left thumb, initial encounter for closed fracture (principal); S93.402A Sprain of unspecified ligament of left ankle, initial encounter; F41.9 Anxiety disorder, unspecified; W01.0XXA Fall on same level from slipping, tripping and stumbling without subsequent striking against object, initial encounter
CPT/HCPCS: 73130; 73610; 99284; A9270

== ENCOUNTER 2023-08-27 17:53 | Emergency (ER) | payer OTHER, BC, SELFPAY ==
[2023-08-27 17:53] VITALS: BP 119/74; PULSE 90; RESP 20; TEMP 36.7; O2SAT 99
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
[2023-08-27 18:41] VITALS: BP 125/72; PULSE 72; RESP 18; TEMP 36.8; O2SAT 94
== END 2023-08-27 18:46 | disposition home or self-care (01) ==
PROVIDERS: Emergency Provider Emergency Medicine
DX: S39.012A Strain of muscle, fascia and tendon of lower back, initial encounter (principal); V43.52XA Car driver injured in collision with other type car in traffic accident, initial encounter; W22.10XA Striking against or struck by unspecified automobile airbag, initial encounter
CPT/HCPCS: 99283

== ENCOUNTER 2023-12-30 18:15 | Emergency (ER) | payer OTHER, BC, SELFPAY ==
[2023-12-30 18:46] VITALS: BP 95/68; PULSE 89; RESP 16; TEMP 36.8; O2SAT 99
--- NOTE | 2023-12-30 19:21 | ED.GENADULT ---
HPI - General Adult General Chief complaint: Abdominal Pain Stated complaint: abdominal pain Time Seen by Provider: 12/30/23 19:12 Source: patient, RN notes reviewed and old records reviewed Mode of arrival: ambulatory Limitations: no limitations History of Present Illness HPI narrative: 28 year old female who presents to [facility] care with complaints of some continued lower abdomen cramping since eating at [employer] on December 18. Patient reports that symptoms started a few days later with the cramping and some diarrhea. Patient reports that she is able to keep fluids and food down down with only some cramping noted after certain foods. Patient voices no recent diarrhea, no nausea or vomiting or any fevers. MD complaint: cramping of lower abdeomen Onset (ago): day(s) (5-6 days) Severity: mild Treatments prior to arrival: none Related Data Allergies Allergy/AdvReac Type Severity Reaction Status Date / Time No Known Allergies Allergy Verified 12/30/23 19:17 Review of Systems Review of Systems: CONSTITUTIONAL: Denies fever, chills, or sweats. EYES: Denies visual changes, redness, or discharge. ENT: Denies rhinorrhea, congestion, sore throat, or otalgia. CARDIOVASCULAR: Denies chest pain, palpitations, or edema. RESPIRATORY: Denies cough or dyspnea. GASTROINTESTINAL: Reports abdominal cramping , nausea, no vomiting, some diarrhea. GENITOURINARY: Denies dysuria or hematuria. SKIN: Denies rash or itching. MUSCULOSKELETAL: Denies back pain, joint pain, or myalgia. NEUROLOGIC: Denies headache, numbness, or weakness. PSYCHIATRIC: Denies anxiety or depression. All systems reviewed & are unremarkable except as noted in HPI and below PMFSH Past Medical History Medical History Anxiety BMI 22.0-22.9, adult Initiation of Depo Provera Osteopenia Family History Family History Sibling Asthma Father No problems noted. Mother No problems noted. Social History Social History Smoking status: Never smoker Second hand tobacco smoke exposure: No Alcohol intake: current Substance use: never Substance use type: does not use Living arrangements: with family Occupation/Education: occupation Additional occupation/education comments: [employer]. Gender identity (if verbalized by the patient): Female Spiritual care concerns: No Comments At time of signature, agree with nursing past medical, surgical, social and family history. There is no relevant family history pertinent to the presenting complaint Exam Narrative: GENERAL: Well-appearing, well-nourished, and in no acute distress. HEAD: Normocephalic, atraumatic. EYES: PERRLA and EOMI. ENT: Nares clear, no rhinorrhea or epistaxis. Mucous membranes moist. NECK: Supple.no lymphadenopathy CHEST: Clear to auscultation. No respiratory distress.SAO2 99% on room air HEART: Regular rate and rhythm. No murmur heard. Normal peripheral pulses. ABDOMEN: Soft, nontender to palpation, nondistended, normal active bowel sounds. some lower abdominal cramping no recent diarrhea or any fevers. EXTREMITIES: Normal range of motion. No edema. SKIN: Warm, dry, no rash. NEURO: No focal deficits. Alert and oriented x3. Course Course Emergency Course: Patient is aware of diagnosis, understands and agrees to treatment plan.? Anticipatory guidance given.? Patient agrees to follow-up as directed and is aware of reasons to seek care at the emergency department. Portions of this record may have been created with voice recognition software Level of Care: Express Care Visit Vital Signs Vital signs: Vital Signs Temperature 36.8 C 12/30/23 18:46 Pulse Rate 89 12/30/23 18:46 Respiratory Rate 16 12/30/23 18:46 Blood Pressure 95/68 L 12/30/23 18:46 Pulse Oxim
== END 2023-12-30 19:41 | disposition home or self-care (01) ==
PROVIDERS: Emergency Provider Registered Nurse; PCP Physician Assistant
DX: R10.30 Lower abdominal pain, unspecified (principal); M85.80 Other specified disorders of bone density and structure, unspecified site
CPT/HCPCS: 99213; G0463

== ENCOUNTER 2024-02-10 12:27 | Emergency (ER) | payer BC, SELFPAY ==
--- NOTE | ~2024-02-10 | XR_ITS ---
Clinical Indication: Shortness of breath PA and lateral views of the chest: Comparison: 12/23/2022 Findings: The lungs are clear, without evidence of focal consolidation or pleural effusion. Cardiome diastinal silhouette is within normal limits. Bones and soft tissues are unremarkable. Impression: Normal chest. Reviewed, dictated and finalized at [facility]. P TECHNOLOGIST Impression: Normal chest.
[2024-02-10 12:33] VITALS: BP 111/74; PULSE 97; RESP 18; TEMP 36.6; O2SAT 99
--- NOTE | 2024-02-10 12:33 | ECG_ITS ---
Test Date: 2024-02-10 12:36:21 Measurements Intervals [place] Rate: 93 P: 40 [place]: 143 QRS: 71 QRSD: 89 T: 51 QT: 339 QTc: 422 Interpretive Statements SINUS RHYTHM BASELINE ARTIFACT- I, II, III, AVR, AVL, AVF, V1 NORMAL ECG No previous ECG available for comparison Electronically Signed On 02-10-2024 12:46:39 STAFF THERAPIST by Sid Arroyo D.O.
[2024-02-10 12:54] LABS: Basophils Percent Auto 0.4 % (0.2-1.2); Eosinophils Percent Auto 0.4 % (0-4.4); Hematocrit 38.3 % (37.0-47.0); Immature Granulocyte Absolute 0.01 K/mm3 (0.00-0.031); Immature Granulocyte Percent A 0.2 % (0-0.5); Lymphocytes Absolute Auto 1.73 K/mm3 (0.9-3.2); Lymphocytes Percent Auto 35.4 % (18.3-44.2); Mean Corpuscular HGB Conc 33.9 g/dl (32-36); Mean Corpuscular Hemoglobin 32.8 pg (26-34); Mean Corpuscular Volume 96.7 fl (80-100); Mean Platelet Volume 11.2 fl (7.4-10.4); Monocytes Absolute Auto 0.5 K/mm3 (0.1-0.6); Neutrophils Absolute Auto 2.6 K/mm3 (1.3-6.7); Neutrophils Percent Auto 52.6 % (45.5-73.1); Platelet Count Result 232 k/mm3 (150-375); Red Blood Count 3.96 M/mm3 (4.2-5.4); Red Cell Distribution Width 13.4 % (11.5-14.5); White Blood Count 4.9 K/mm3 (4.5-10.0)
[2024-02-10 13:00] LABS: Alanine Aminotransferase 11 U/L (6-35); Albumin Level 4.6 g/dL (3.5-5.1); Alkaline Phosphatase 65 U/L (38-126); Anion Gap 7 mmol/L (4-12); Aspartate Amino Transferase 20 U/L (14-36); Bilirubin,Total 0.5 mg/dL (0.2-1.3); Blood Urea Nitrogen 11 mg/dL (7-17); Calcium 9.4 mg/dL (8.4-10.2); Carbon Dioxide 24 mmol/L (22-30); Chloride 110 mmol/L (98-107); Estimated CRCL calculation 117 ml/min; Estimated Glomerular Filt Rate > 60; Glucose 82 mg/dL (65-110); Lipase 113 U/L (23-300); Potassium 3.4 mmol/L (3.4-5.0); Sodium 141 mmol/L (137-145)
[2024-02-10 13:12] LABS: Troponin I < 0.012 ng/mL (0.000-0.034)
[2024-02-10 13:15] LABS: INR 1.1; Prothrombin Time 14.4 Seconds (11.1-14.7)
[2024-02-10 13:16] LABS: Partial Thromboplastin Time 31.9 Seconds (22.3-36.8)
[2024-02-10 13:33] LABS: Influenza A QL RT-PCR Negative (Negative); Influenza B QL RT-PCR Negative (Negative); RSV RNA, RT-PCR Negative (Negative); SARS-CoV-2 RNA PCR Negative (Negative)
--- NOTE | 2024-02-10 14:02 | ED_ITS ---
HPI - SOB/Dyspnea General Chief Complaint: Shortness of Breath/Dyspnea Stated Complaint: SOB x2 days, R. sided chest pain Time Seen by Provider: 02/10/24 13:53 Source: patient Mode of arrival: ambulatory Limitations: no limitations History of Present Illness HPI Narrative: This is a 28-year-old female who presents to the ED for chief complaint of 2 days of intermittent right chest pain. Endorses difficulty breathing, tightness with deeper breathing. Does not really feeling winded or very short of breath. Denies exertional component to dyspnea or chest pain. Denies fevers, chills, nausea, vomiting, syncope, numbness, weakness. Related Data Allergies Allergy/AdvReac Type Severity Reaction Status Date / Time No Known Allergies Allergy Verified 02/10/24 12:28 Review of Systems Review of Systems: All systems as dictated in HPI [facility] Past Medical History Medical History Anxiety BMI 22.0-22.9, adult Initiation of Depo Provera Osteopenia Family History Family History Sibling Asthma Father No problems noted. Mother No problems noted. Social History Social History Smoking status: Never smoker Second hand tobacco smoke exposure: No Alcohol intake: current Substance use: never Substance use type: does not use Living arrangements: with family Occupation/Education: occupation Additional occupation/education comments: [employer]. Gender identity (if verbalized by the patient): Female Spiritual care concerns: No Exam Narrative: GENERAL: Well-appearing, well-nourished, and in no acute distress. HEAD: Normocephalic, atraumatic. EYES: PERRLA and EOMI. ENT: Nares clear, no rhinorrhea or epistaxis. Mucous membranes moist. Oropharynx without tonsillar hypertrophy exudate or other lesions. NECK: Supple. No adenopathy or masses. CHEST: No respiratory distress. Clear to auscultation. No wheezes rales or rhonchi HEART: Regular rate and rhythm. No murmur heard. Normal peripheral pulses. ABDOMEN: Soft, nontender, nondistended, normal active bowel sounds. MSK: Normal range of motion. No edema. SKIN: Warm, dry, no rash. NEURO: Alert and oriented x4. No focal deficits. PSYCH: Normal mood and affect. Course Vital Signs Vital signs: Vital Signs Temperature 97.8 F 02/10/24 12:33 Pulse Rate 97 02/10/24 12:33 Respiratory Rate 18 02/10/24 12:33 Blood Pressure 111/74 02/10/24 12:33 Pulse Oximetry 99 02/10/24 12:33 Oxygen Delivery Room Air 02/10/24 12:33 Temperature 97.8 F 02/10/24 12:33 Pulse Rate 97 02/10/24 12:33 Respiratory Rate 18 02/10/24 12:33 Blood Pressure 111/74 02/10/24 12:33 Pulse Oximetry 99 02/10/24 12:33 Oxygen Delivery Room Air 02/10/24 12:33 MDM - SOB/Dyspnea MDM Narrative Medical decision making narrative: this is a 28-year-old female who presents to the ED for chief complaint of difficulty breathing and chest pain over the past couple of days. Vitals are normal and exam is benign. ECG shows normal sinus rhythm. Lab work is grossly unremarkable. Troponin is normal. She is PERC rule negative for PE. Heart score 0 Chest x-ray shows no acute findings. Presentation consistent with atypical chest pain versus pleurisy versus anxiety. Rx for drugs is seen and for naproxen given for the above. Encourage PCP follow-up. Patient will be discharged in stable condition. Supportive measures discussed and return precautions given. Patient is understanding and agreeable with plan for discharge with PCP follow-up. Lab Data 02/10/24 12:43 02/10/24 12:43 Labs: Lab Results 02/10/24 Range/Units 12:43 WBC 4.9 (4.5-10.0) K/mm3 RBC 3.96 L (4.2-5.4) M/mm3 Hgb 13.0 (12.0-15.0) g/dL Hct 38.3 (37.0-47.0) % MCV 96.7 (80-100) fl MCH 32.8 (26-34) pg MCHC 33.9 (32-36) g/dl RDW 13.4 (11.5-14.5) % Plt Count 232 (150-375) k/mm3 MPV 11.2 H (7.4-10.4) fl Immature Gran % (Auto) 0.2 (0-0.5) % Neut % (Auto) 52.6 (45.5-73.1) % Lymph % (Auto) 35.4 (18.3-44.2) % [place] % (Auto) 11.0 H (2.6-8.5) % Eos % (Auto) 0.4 (0-4.4) % Baso % (Auto) 0.4 (0.2-1.2) % Lymph # (Auto) 1.73 (0.9-3.2) K/mm3 [place] # (Auto) 0.5 (0.1-0.6) K/mm3 Eos # (Auto) 0.0 (0-0.3) K/mm3 Baso # (Auto) 0.0 (0.0-0.1) K/mm3 Abs Immat Gran (auto) 0.01 (0.00-0.031) K/mm3 Absolute Neuts (auto) 2.6 (1.3-6.7) K/mm3 Absolute Nucleated RBC 0.000 (0.0-0.012) K/mm3 Nucleated RBC % 0.0 (0.0-0.2) % PT 14.4 (11.1-14.7) Seconds INR 1.1 APTT 31.9 (22.3-36.8) Seconds Sodium 141 (137-145) mmol/L Potassium 3.4 (3.4-5.0) mmol/L Chloride 110 H (98-107) mmol/L Carbon Dioxide 24 (22-30) mmol/L Anion Gap 7 (4-12) mmol/L BUN 11 (7-17) mg/dL Creatinine 0.60 L (0.7-1.0) mg/dL Estim Creat Clear Calc 117 ml/min Estimated GFR > 60 (59 - ) Glucose 82 (65-110) mg/dL Calcium 9.4 (8.4-10.2) mg/dL Total Bilirubin 0.5 (0.2-1.3) mg/dL AST 20 (14-36) U/L ALT 11 (6-35) U/L Alkaline Phosphatase 65 (38-126) U/L Troponin I < 0.012 (0.000-0.034) ng/mL Total Protein 8.0 (6.3-8.2) g/dL Albumin 4.6 (3.5-5.1) g/dL Lipase 113 (23-300) U/L Influenza A (RT-PCR) Negative (Negative) Influenza B (RT-PCR) Negative (Negative) RSV (RT-PCR) Negative (Negative) SARS-CoV-2 RNA (RT-PCR) Negative (Negative) Discharge Plan Discharge Clinical Impression: Atypical chest pain Patient Disposition: Home, Self-Care Condition: Stable Instructions: Antibiotic Form, Pleurisy (ED) Additional Instructions: your exam and imaging today are reassuring overall. Please follow-up with your regular doctor regarding these symptoms. Use hydroxyzine as needed for anxiety. Use naproxen twice per day as an NSAID. If you have any new or worsening symptoms please return to the ER for further evaluation. Prescriptions: New naproxen 500 mg tablet 500 mg PO BID PRN (Reason: pain) Qty: 30 0RF hydroxyzine HCl 25 mg tablet 25 mg PO TID PRN (Reason: anxiety) Qty: 20 0RF No Action ondansetron 4 mg tablet,disintegrating 4 mg PO Q6H PRN (Reason: nausea and vomiting) Qty: 14 0RF dicyclomine 20 mg tablet 20 mg PO TID Qty: 20 0RF Rx Instructions: for abdominal cramping medroxyprogesterone [Depo-Provera] 150 mg/mL syringe 150 mg IM [id number] Qty: 1 0RF Follow-up/Referrals: Amirah,STEPHANIE Aguilar [Primary Care Provider] - Time of Disposition: 14:03 Quality HEART score for chest pain patients History: slightly suspicious ECG: normal Age: < or = to 45 years Risk factors: no risk factors known Troponin: < or = to 1x normal limit Heart score: 0
== END 2024-02-10 14:29 | disposition home or self-care (01) ==
LOC: ANHED 14:11
PROVIDERS: Emergency Medicine; Emergency Provider Physician Assistant; PCP Physician Assistant
DX: R07.89 Other chest pain (principal); Z20.822 Contact with and (suspected) exposure to COVID-19; M85.80 Other specified disorders of bone density and structure, unspecified site
CPT/HCPCS: 36415; 71046; 80053; 83690; 84484; 85025; 85610; 85730; 87637; 93005; 99284

== ENCOUNTER 2024-03-04 08:01 | Outpatient (CLI) | payer BC, SELFPAY ==
[2024-03-04 09:15] LABS: Beta HCG Quantitative < 2.39 mIU/ML
== END 2024-03-04 08:02 | disposition home or self-care (01) ==
LOC: ANHLAB 08:04
PROVIDERS: PCP Physician Assistant; Visit Provider Obstetrics & Gynecology
DX: Z30.013 Encounter for initial prescription of injectable contraceptive (principal)
CPT/HCPCS: 36415; 84702